=== PATIENT | female | born 1955 | race Two or more races ===

== ENCOUNTER 2016-06-07 13:28 | Emergency (ER) | payer MEDICAID ==
[~2016-06-07] VITALS: Ht 165.1 cm; Wt 69.4 kg
[2016-06-07 13:41] VITALS: BP 135/75
== END 2016-06-07 14:33 | disposition home or self-care (01) ==
LOC: ER 13:29
DX: J20.9 Acute bronchitis, unspecified (principal)
CPT/HCPCS: 99283; A4606; Z7610

== ENCOUNTER 2017-07-18 09:05 | Emergency (ER) | payer MEDICAID ==
[~2017-07-18] VITALS: Ht 162.6 cm; Wt 69.4 kg
--- NOTE | 2017-07-18 09:15 | NUR ---
AAOX3, CAME TO ER C/O INSOMNIA AND GENERALIZED ITCHING X 1 MONTH. SKIN IS WARM AND DRY. RESP IS EVEN AND UNLABORED WITH NAD NOTED. PLACED ON HOSPITAL GOWN. AWAITING MD FOR EVAL.
--- NOTE | 2017-07-18 09:49 | NUR ---
CALLED DR PEOPLES FOR CONSULT
[2017-07-18 09:57] LABS: BASOPHILS % (AUTO) 0.4 % (0.0-2.0); EOSINOPHILS # (AUTO) 0.1 /CMM (0.0-0.7); EOSINOPHILS % (AUTO) 1.4 % (0.0-6.0); HEMATOCRIT 37 % (33-45); HEMOGLOBIN 12.5 g/dL (11.5-14.8); LYMPHOCYTES # (AUTO) 2.2 /CMM (0.8-4.8); LYMPHOCYTES % (AUTO) 27.6 % (20.0-44.0); MEAN CORPUSCULAR HEMOGLOBIN 28 PG (26.0-33.0); MEAN CORPUSCULAR HGB CONC 34 g/dl (31.0-36.0); MEAN CORPUSCULAR VOLUME 83 fL (82-100); MONOCYTES # (AUTO) 0.6 /CMM (0.1-1.30); MONOCYTES % (AUTO) 7.5 % (2.0-12.0); NEUTROPHILS % (AUTO) 63.1 % (43.0-81.0); PLATELET COUNT (AUTO) 313 /CMM (150-450); RDW COEFFICIENT OF VARIATION 13.9 (11.5-15.0); RED BLOOD CELL COUNT(AUTO) 4.46 MIL/uL (4.0-5.2)
[2017-07-18] MEDS ORDERED: IV NS 0.9% 1,000 ML BAG IV ONE (10:00)
[2017-07-18 10:24] LABS: INR 0.94 (0.87-1.13)
[2017-07-18 10:44] LABS: APPEARANCE,URINE SL CLOUDY (CLEAR); BILIRUBIN,URINE 2+ (NEGATIVE); BLOOD, URINE 1+ Ery/uL (NEGATIVE); COLOR,URINE YELLOW (YELLOW); KETONES,URINE NEGATIVE (NEGATIVE); LEUKOCYTE ESTERASE ,URINE NEGATIVE (NEGATIVE); NITRITE, URINE NEGATIVE (NEGATIVE); PH,URINE 5.5 (5.0-8.0); PROTEIN,URINE 2+ mg/dl (NEGATIVE); UGLUCOSE NEGATIVE (NEGATIVE)
[2017-07-18 10:49] LABS: BACTERIA,URINE Rare /HPF (None Seen); SQUAMOUS EPITHELIAL CELL,UR Few /HPF (None Seen); WBC,URINE 0-2 /HPF (0-3)
[2017-07-18 11:28] LABS: CALCIUM, SERUM 9.8 mg/dL (8.5-10.1); CREATININE 0.9 mg/dL (0.6-1.3)
[2017-07-18 11:34] LABS: ALBUMIN 3.3 g/dL (3.4-5.0); BILIRUBIN,DIRECT 2.2 mg/dL (0.0-0.2); BILIRUBIN,TOTAL 2.9 mg/dL (0.2-1.0); TOTAL PROTEIN, SERUM 9.2 g/dL (6.4-8.2)
--- NOTE | 2017-07-18 12:25 | NUR ---
SPOKE WITH , INFORMED ME HE IS ARRANGING FOR TRANSFER TO [facility]
[2017-07-18 12:30] VITALS: BP 111/66
--- NOTE | 2017-07-18 12:33 | NUR ---
RECEIVED CALL FROM QUEENIE AT [facility], , SHE SAID SHE WILL WORK ON GETTING A BED AT [facility] AND TO FAX HER A FACESHEET TO [phone].
--- NOTE | 2017-07-18 12:40 | NUR ---
CALLED AT [phone], TRANSFERRED CALL TO
--- NOTE | 2017-07-18 13:48 | NUR ---
RECEIVED CALL FROM QUEENIE KATE, PT IS ACCEPTED TO [facility], GOING TO ROOM 309-B, PLEASE GIVE REPORT TO NURSE JORJE AT [phone], [facility] SHOULD ARRIVE BY [phone].
--- NOTE | 2017-07-18 14:24 | NUR ---
PATIENT WAS PICKED UP BY ALEXANDRA RODRIGUEZ. KELLYS.
--- NOTE | 2017-07-18 14:24 | NUR ---
REPORT GIVEN TO GEORGES RECINOS FOR [facility]
== END 2017-07-18 14:27 ==
LOC: ER 09:07
DX: R17 Unspecified jaundice (principal); G47.00 Insomnia, unspecified
CPT/HCPCS: 36415; 71045; 80048; 80076; 81001; 83690; 85025; 85730; 93005; 96360; 99285; A4606; 81000-TC; Z7610